=== PATIENT | female | born 1990 | race Hispanic/Latino ===

== ENCOUNTER 2018-08-12 20:20 | Inpatient (IN) | payer MEDICAID | END 2018-08-14 12:35 | disposition home or self-care (01) | LOC: LDH 20:20 → WSH 08-13 10:45 ==

== ENCOUNTER 2019-08-19 06:31 | Inpatient (IN) | payer MEDICAID ==
[~2019-08-19] VITALS: Ht 152.4 cm; Wt 74.4 kg
[~2019-08-19 06:31] MED LIST: ACYC800T PO; PREN1TAB63 PO; PREN1TAB80 PO
[2019-08-19] MEDS ORDERED: LACTATED RINGERS 1000ML 1,000 ML IV PRN (07:13)
[2019-08-19] MEDS ORDERED: OXYTOCIN 10 USP UNITS/ML 20 UNIT in LACTATED RINGERS 1000ML 1,000 ML IV SCH (07:15)
[2019-08-19] MEDS ORDERED: OXYTOCIN-LR 20 UNITS/1000 ML 1,000 ML IV ONE ×2 (07:20→12:01)
[2019-08-19 09:28] LABS: HEMATOCRIT 28.1 % (36-48); MEAN CORPUSCULAR HEMOGLOBIN 21.1 pg (27.0-33.0); MEAN CORPUSCULAR HGB CONC 29.2 g/dL (32.0-36.0); MEAN CORPUSCULAR VOLUME 72.4 fL (79-99); PLATELET COUNT (AUTO) 205 K/uL (130-400); RED BLOOD CELL COUNT(AUTO) 3.88 MIL/uL (4.00-5.50); RED CELL DISTRIBUTION WIDTH 19.6 % (11.0-15.5); WHITE BLOOD COUNT (AUTO) 8.2 K/uL (4.8-10.8)
[2019-08-19] MEDS: IBUPROFEN 600 MG TABLET PO PRN ×2 (12:00→21:04)
[2019-08-19] MEDS ORDERED: IBUPROFEN 600 MG TABLET ONE (12:00)
[2019-08-19] MEDS ORDERED: MEASLES/MUMPS/RUBELLA VACCINE, LIVE 0.5 ML/VIAL SQ PRN (12:00)
[2019-08-19] MEDS ORDERED: ACETAMINOPHEN 325 MG TAB PO PRN (12:00)
[2019-08-19] MEDS ORDERED: LANOLIN 30GM OINTMENT TP PRN (12:00)
[2019-08-19] MEDS ORDERED: ACETAMINOPHEN-CODEINE 300/30MG TAB PO PRN (12:00)
[2019-08-19] MEDS ORDERED: BENZOCAINE/LANOLIN/ALOE VERA 60 ML AEROSOL TP PRN (12:00)
[2019-08-19] MEDS ORDERED: OXYTOCIN-LR 20 UNITS/1000 ML 1,000 ML IV SCH (12:00)
[2019-08-19] MEDS ORDERED: DIPH,PERTUSS(ACELL),TET VAC/PF 0.5 ML VIAL IM PRN (12:00)
[2019-08-19] MEDS ORDERED: WITCH HAZEL 1 PAD TP PRN (12:00)
[2019-08-19 14:23] VITALS: BP 122/58
[2019-08-19] MEDS ORDERED: PREN-68 PO (17:48)
[2019-08-19 20:01] VITALS: BP 102/62
[2019-08-19] MEDS: DOCUSATE SODIUM 100 MG CAP PO SCH (21:04)
[2019-08-19 23:55] VITALS: BP 97/71
[2019-08-20 03:25] VITALS: BP 96/52
[2019-08-20 06:25] LABS: HEMATOCRIT 26.7 % (36-48); MEAN CORPUSCULAR HEMOGLOBIN 20.8 pg (27.0-33.0); MEAN CORPUSCULAR HGB CONC 28.8 g/dL (32.0-36.0); MEAN CORPUSCULAR VOLUME 72.2 fL (79-99); PLATELET COUNT (AUTO) 198 K/uL (130-400); RED CELL DISTRIBUTION WIDTH 19.6 % (11.0-15.5); WHITE BLOOD COUNT (AUTO) 10.7 K/uL (4.8-10.8)
[2019-08-20 07:40] VITALS: BP 95/62
[2019-08-20 08:12] LABS: HEPATITIS Bs ANTIGEN SCREEN P Negative (Negative)
--- NOTE | 2019-08-20 08:30 | NUR ---
PATIENT ASSESSED AND VAGINAL BLEEDING IS SCANT. STATES HAVING PAIN OF 3 AND WILL MEDICATED WITH MOTRIN SCHEDULED. PATIENT DENIES ANY DIZZINESS ON AMBULATION. STATES SUCCESSFULLY BABY.
--- NOTE | 2019-08-20 08:30 | NUR ---
DR. HOPSON ROUNDED AND DISCHARGED PATIENT TO HOME. PATIENT DENIES ANY PROBLEMS AND STATES PAIN IS TOLERABLE.
[2019-08-20] MEDS: DOCUSATE SODIUM 100 MG CAP PO SCH (09:37)
[2019-08-20 11:14] VITALS: BP 100/58
--- NOTE | 2019-08-20 13:30 | NUR ---
DISCHARGE INSTRUCTIONS GIVEN AND AND SCRIPT FOR MOTRIN PROVIDED AND INSTRUCTED ON DOSAGE AND FREQUENCY OF MEDICATIONS. PATIENT VERBALIZES UNDERSTANDING INSTRUCTIONS GIVEN.
--- NOTE | 2019-08-20 14:00 | NUR ---
PATIENT WAS TAKE VIA W/C CARRYING BABY IN ARMS TO FAMILY VEHICLE AND DISCHARGED TO SIGNIFICANT OTHER IN STABLE CONDITION.
== END 2019-08-20 14:00 | disposition home or self-care (01) | DRG 560 ==
LOC: LDH 06:31 → WSH 13:31
PROVIDERS: ADMIT Obstetrics & Gynecology; ATTEND Obstetrics & Gynecology
PROC: 10E0XZZ Delivery of Products of Conception, External Approach (ICD-10-PCS; principal; 2019-08-19)
PROC: 3E033VJ Introduction of Other Hormone into Peripheral Vein, Percutaneous Approach (ICD-10-PCS; 2019-08-19)
PROC: 3E0234Z Introduction of Serum, Toxoid and Vaccine into Muscle, Percutaneous Approach (ICD-10-PCS; 2019-08-19)
DX: O80 Encounter for full-term uncomplicated delivery (principal); Z37.0 Single live birth; Z23 Encounter for immunization; Z3A.39 39 weeks gestation of pregnancy
CPT/HCPCS: 36415; 85027; 86592; 86850; 86900; 86901; 87340; 90707; 90715; G0378; J2590